=== PATIENT | male | born 1960 | race Caucasian/White ===

== ENCOUNTER → 2020-03-24 14:52 | Outpatient (CLI) | payer OTHER, SELFPAY ==
[2020-03-24 13:34] VITALS: BMI 28.4
[2020-03-24 17:15] LABS: Free T3 3.8 pg/mL (2.18-3.98)
== END ==
PROVIDERS: PCP Internal Medicine; Referring Provider Internal Medicine; Visit Provider Internal Medicine
DX: R00.0 Tachycardia, unspecified (principal)
CPT/HCPCS: 36415; 84439; 84443; 84481

== ENCOUNTER → 2020-05-07 10:32 | Outpatient (CLI) | payer OTHER, SELFPAY ==
[2020-03-24 13:34] VITALS: BMI 28.4
[2020-05-05 14:34] VITALS: BMI 30.9
--- NOTE | 2020-05-07 10:39 | STE_ITS ---
Reason For Study: CHEST PAIN Stress Results Protocol: Jai Protocol Maximum Predicted HR: 159 bpm Target HR: 135 bpm % Maximum Predicted HR: 93 % DurationHeart Rate Stage (mm:ss) (bpm) BP Comment BASELINE 60 136/78 STAGE 1 3:00 101 128/82 STAGE 2 3:00 123 168/72CAN FEEL THE EXTRA BEATS STAGE 3 3:00 139 178/70 STAGE 4 1:00 148 / LEFT FATIGUE RECOVERY 90 140/80 Stress Duration: 10:00 mm:ss Maximum Stress HR: 148 bpm Baseline Echocardiogram Findings Stress Echo Wall motion Data Resting WM Intermediate WM Stress WM Interpretation Summary Exercise stress echo. 60-year-old man with a history of shortness of breath and chest pain status post COVID-20 February 2020. Stress protocol: Resting EKG demonstrates normal sinus rhythm with a rate of 67 bpm normal intervals are noted resting blood pressure is 136/78 mmHg. Patient exercised according to the regular Jai protocol for total duration of 10 minutes. Patient completed 1 minute into stage IV of the Jai protocol. The maximum heart rate was 150 bpm which was 94% of max impacted heart rate the maximum workload was 13.4 metabolic equivalents. The patient maintained sinus rhythm throughout the recording. At rest there were no ST or T wave changes noted to suggest ischemia peak exercise upsloping ST changes were noted with no meet the criteria for ischemia. The peak blood pressure was 190/70 mmHg which was an adequate blood pressure response to exercise. The test was terminated due to leg fatigue. Stress echocardiogram. Resting and stress echocardiographic images were obtained. At rest of the estimated ejection fraction was 55% with no wall motion abnormalities present. At peak exercise there was augmentation of the left ventricular ejection fraction estimated to be 65%. Thickening of all galeano were noted with reduction in left ventricular cavity size. No new wall motion abnormalities were noted to suggest ischemia. Conclusion: Exercise stress echocardiogram with no EKG criteria for ischemia. Normal resting and stress echocardiographic images. Excellent functional aerobic capacity. No clinical angina noted Ordering Physician: Nikki Hernandez Referring Physician: Nikki Hernandez Performed By: Moisés De La Paz MD
--- NOTE | 2020-05-07 11:50 | RAD_ITS ---
STUDY: X-RAY CHEST REASON FOR EXAM: Male, 60 years old. DYSPNEA ON EXERTION. HX OF DOUBLE PNEUMONIA IN FEBRUARY. TECHNIQUE: PA and lateral views of the chest. COMPARISON: None. FINDINGS: The lungs are clear and expanded. There is no demonstrated pleural abnormality. Normal size heart. Normal mediastinum and radha. Normal visualized pulmonary arteries. Normal visualized aortic arch and descending thoracic aorta. Normal visualized thoracic spine. Normal visualized ribs, clavicles, and shoulders. There is no demonstrated abnormality of the visualized soft tissue structures of the upper abdomen. RAD/Chest PA and Lateral IMPRESSION: Normal x-ray examination of the chest. Electronically Signed: Neymar Simms MD at 15:36 EST , Service support ,
== END ==
PROVIDERS: PCP Internal Medicine; Referring Provider Internal Medicine; Visit Provider Internal Medicine
DX: R00.0 Tachycardia, unspecified (principal); R06.00 Dyspnea, unspecified; R07.9 Chest pain, unspecified; Z87.01 Personal history of pneumonia (recurrent)
CPT/HCPCS: 71046; 93017; 93350

== ENCOUNTER → 2021-11-09 | Outpatient (CLI) | payer OTHER, SELFPAY ==
--- NOTE | 2021-11-09 15:01 | CT_ITS ---
STUDY: CT BRAIN WITHOUT CONTRAST REASON FOR EXAM: Male, 61 years old. Right sided facial droop acute RADIATION DOSAGE (If Supplied By Facility): CTDIvol = ( 47.06 ) mGy, DLP = ( 872.68 ) mGycm TECHNIQUE: Transaxial CT imaging of the brain was performed without administration of intravenous contrast material. Individualized dose optimization techniques were used for this CT. COMPARISON: No relevant priors. FINDINGS: Normal soft tissue structures. Normal calvarium. Normal size ventricles and extra-axial spaces for the patient''s age. Normal white matter tracts of the cerebral hemispheres. Normal basal ganglia and thalami. Normal brainstem. Normal cerebellum. There is no intracranial hemorrhage. There are no findings of an acute ischemic infarction. Partial opacification of the left maxillary sinus. Mucosal thickening of the right maxillary sinus. CT/Brain/Head without Contrast IMPRESSION: Normal unenhanced CT scan of the brain. Electronically Signed: Neymar Simms MD at 15:39 EDT ,
== END | disposition home or self-care (01) ==
LOC: CT 15:01
PROVIDERS: PCP Internal Medicine; Referring Provider Nurse Practitioner Family; Visit Provider Nurse Practitioner Family
DX: R29.810 Facial weakness (principal); R53.1 Weakness
CPT/HCPCS: 70450

== ENCOUNTER → 2021-12-23 | Outpatient (CLI) | payer OTHER, SELFPAY ==
[2021-12-23 12:55] LABS: Absolute Lymphocyte Count 1.54 X10^3/uL (0.83-4.51); Absolute Neutrophil Count 7.4 X10^3/uL (2.0-7.7); Basophil# 0.04 X10^3/uL; Basophil% 0.4 % (0-1); Hematocrit 41.7 % (40-54); Hemoglobin 13.5 g/dL (13.0-16.5); Lymphocyte # 1.54 X10^3/ul (0.83-4.51); Lymphocyte % 15.8 % (19-41); Mean Corp Hgb Conc 32.4 g/dL (32-36); Mean Corpuscular Hgb 27.6 pg (27.0-32.0); Mean Corpuscular Volume 85.1 fL (80-94); Mean Platelet Vol. 9.5 fl (6.2-12.0); Monocyte# 0.57 X10^3/uL; Monocyte% 5.8 % (0-10); NRBC Flagged by Analyzer 0 % (0-5); Neutrophil # 7.42 X10^3/uL (2.7-7.7); Neutrophil % 76.2 % (47-70); Platelet Count 287 K/mm3 (150-450); RBC Distribution Width CV 13.9 % (11.6-14.6); RBC Distribution Width SD 42.8 fl (35.1-43.9); White Blood Count 9.8 K/mm3 (4.4-11.0)
[2021-12-23 13:16] LABS: Vitamin D,25 Hydroxy 137.4 ng/mL
[2021-12-23 13:26] LABS: ALB/GLOB Ratio 0.7 RATIO (0.9-2.4); AST(SGOT) 12 U/L (15-37); Alanine Aminotransfer ALT/SGPT 20 U/L (16-61); Albumin, Serum 2.8 g/dL (3.2-5.0); Alkaline Phosphatase 98 U/L (45-117); Anion Gap 5 (5-15); BUN 21 mg/dL (7-18); BUN/Creat Ratio 19.6 RATIO (10-20); Calcium,Total 9.1 mg/dL (8.5-10.1); Chloride 104 mmol/L (98-107); Cholesterol 179 mg/dL (200); Creatinine, Serum 1.07 mg/dL (0.70-1.30); EST Glomerular Filtration Rate 74 mL/min (>60); Est Glom Filt Rate - Afr Amer 90 mL/min (>60); Globulin 4.3 g/dL (2.2-4.2); Glucose 89 mg/dL (74-106); High Density Lipoprotein 27 mg/dL; PSA,Total - Annual Screen 0.26 ng/mL (0.00-4.00); Potassium 3.9 mmol/L (3.5-5.1); Protein, Total 7.1 g/dL (6.4-8.2); Sodium Level 139 mmol/L (136-145); Thyroid Stim Hormone (TSH) 2.31 uIU/mL (0.358-3.74); Triglycerides 117 mg/dL; Very Low Density Lipoprotein 23 mg/dL (5-40)
== END | disposition home or self-care (01) ==
LOC: LAB 11:01
PROVIDERS: PCP Internal Medicine; Referring Provider Internal Medicine; Visit Provider Internal Medicine
DX: Z00.00 Encounter for general adult medical examination without abnormal findings (principal); Z13.220 Encounter for screening for lipoid disorders; Z13.1 Encounter for screening for diabetes mellitus; E55.9 Vitamin D deficiency, unspecified
CPT/HCPCS: 36415; 80053; 80061; 82306; 84153; 84443; 85025; G0103

== ENCOUNTER → 2022-10-28 | Outpatient (CLI) | payer OTHER, SELFPAY ==
[2022-10-28 10:21] LABS: Absolute Neutrophil Count 3.9 X10^3/uL (2.0-7.7); Basophil# 0.03 X10^3/uL; Basophil% 0.5 % (0-1); Eosinophil# 0.08 X10^3/uL; Eosinophils% 1.2 % (0-5); Hematocrit 47.4 % (40-54); Hemoglobin 15.7 g/dL (13.0-16.5); Lymphocyte % 31.9 % (19-41); Mean Corp Hgb Conc 33.1 g/dL (32-36); Mean Corpuscular Hgb 28.5 pg (27.0-32.0); Mean Corpuscular Volume 86.2 fL (80-94); Mean Platelet Vol. 9.6 fl (6.2-12.0); Monocyte# 0.43 X10^3/uL; Monocyte% 6.5 % (0-10); NRBC Flagged by Analyzer 0 % (0-5); Neutrophil # 3.93 X10^3/uL (2.7-7.7); Neutrophil % 59.6 % (47-70); Platelet Count 179 K/mm3 (150-450); RBC Distribution Width CV 13.3 % (11.6-14.6); RBC Distribution Width SD 41.5 fl (35.1-43.9); White Blood Count 6.6 K/mm3 (4.4-11.0)
[2022-10-28 10:47] LABS: Vitamin D,25 Hydroxy 67.6 ng/mL
[2022-10-28 10:59] LABS: ALB/GLOB Ratio 0.9 RATIO (0.9-2.4); AST(SGOT) 13 U/L (15-37); Alanine Aminotransfer ALT/SGPT 23 U/L (16-61); Albumin, Serum 3.5 g/dL (3.2-5.0); Alkaline Phosphatase 71 U/L (45-117); Anion Gap 4 (5-15); BUN 17 mg/dL (7-18); BUN/Creat Ratio 14.4 RATIO (10-20); Chloride 105 mmol/L (98-107); Cholesterol 252 mg/dL (200); Creatinine, Serum 1.18 mg/dL (0.70-1.30); EST Glomerular Filtration Rate 66 mL/min (>60); Est Glom Filt Rate - Afr Amer 80 mL/min (>60); Free T3 2.7 pg/mL (2.18-3.98); Globulin 3.8 g/dL (2.2-4.2); Glucose 98 mg/dL (74-106); High Density Lipoprotein 42 mg/dL; Potassium 4.2 mmol/L (3.5-5.1); Protein, Total 7.3 g/dL (6.4-8.2); Sodium Level 140 mmol/L (136-145); T4 Free Direct 0.95 ng/dL (0.76-1.46); Thyroid Stim Hormone (TSH) 2.67 uIU/mL (0.358-3.74); Triglycerides 202 mg/dL; Very Low Density Lipoprotein 40 mg/dL (5-40)
== END | disposition home or self-care (01) ==
LOC: LAB 09:24
PROVIDERS: PCP Internal Medicine; Referring Provider Internal Medicine; Visit Provider Internal Medicine
DX: Z00.00 Encounter for general adult medical examination without abnormal findings (principal); Z13.220 Encounter for screening for lipoid disorders; E55.9 Vitamin D deficiency, unspecified; R53.83 Other fatigue
CPT/HCPCS: 36415; 80053; 80061; 82306; 84402; 84403; 84439; 84443; 84481; 85025

== ENCOUNTER → 2023-10-30 | Outpatient (CLI) | payer OTHER, SELFPAY ==
[2023-10-30 07:07] LABS: Absolute Lymphocyte Count 1.98 X10^3/uL (0.83-4.51); Absolute Neutrophil Count 3.9 X10^3/uL (2.0-7.7); Basophil# 0.04 X10^3/uL; Basophil% 0.6 % (0-1); Eosinophil# 0.13 X10^3/uL; Hematocrit 48.7 % (40-54); Hemoglobin 16.4 g/dL (13.0-16.5); Lymphocyte # 1.98 X10^3/ul (0.83-4.51); Lymphocyte % 30.2 % (19-41); Mean Corp Hgb Conc 33.7 g/dL (32-36); Mean Corpuscular Hgb 28.3 pg (27.0-32.0); Mean Corpuscular Volume 84.1 fL (80-94); Mean Platelet Vol. 9.1 fl (6.2-12.0); Monocyte# 0.51 X10^3/uL; Monocyte% 7.8 % (0-10); NRBC Flagged by Analyzer 0 % (0-5); Neutrophil # 3.85 X10^3/uL (2.7-7.7); Neutrophil % 58.8 % (47-70); Platelet Count 209 K/mm3 (150-450); RBC Distribution Width CV 13.9 % (11.6-14.6); RBC Distribution Width SD 42.1 fl (35.1-43.9); Red Blood Count 5.79 M/mm3 (4.6-6.2); White Blood Count 6.6 K/mm3 (4.4-11.0)
[2023-10-30 07:33] LABS: Vitamin D,25 Hydroxy 77.7 ng/mL
[2023-10-30 07:41] LABS: ALB/GLOB Ratio 0.9 RATIO (0.9-2.4); AST(SGOT) 20 U/L (15-37); Alanine Aminotransfer ALT/SGPT 23 U/L (16-61); Albumin, Serum 3.2 g/dL (3.2-5.0); Alkaline Phosphatase 62 U/L (45-117); Anion Gap 2 (5-15); BUN 18 mg/dL (7-18); BUN/Creat Ratio 14.6 RATIO (10-20); Calcium,Total 8.4 mg/dL (8.5-10.1); Chloride 108 mmol/L (98-107); Cholesterol 226 mg/dL (200); Creatinine, Serum 1.23 mg/dL (0.70-1.30); EST Glomerular Filtration Rate 63 mL/min (>60); Est Glom Filt Rate - Afr Amer 76 mL/min (>60); Globulin 3.5 g/dL (2.2-4.2); Glucose 105 mg/dL (74-106); High Density Lipoprotein 34 mg/dL; PSA,Total - Annual Screen 0.42 ng/mL (0.00-4.00); Potassium 3.9 mmol/L (3.5-5.1); Protein, Total 6.7 g/dL (6.4-8.2); Sodium Level 139 mmol/L (136-145); Thyroid Stim Hormone (TSH) 4.87 uIU/mL (0.358-3.74); Triglycerides 266 mg/dL; Very Low Density Lipoprotein 53 mg/dL (5-40)
[2023-10-30 08:31] LABS: Free T3 2.6 pg/mL (2.18-3.98); T4 Free Direct 0.89 ng/dL (0.76-1.46)
== END | disposition home or self-care (01) ==
LOC: LAB 06:05
PROVIDERS: PCP Internal Medicine; Referring Provider Internal Medicine; Visit Provider Internal Medicine
DX: Z00.00 Encounter for general adult medical examination without abnormal findings (principal); Z13.1 Encounter for screening for diabetes mellitus; Z13.220 Encounter for screening for lipoid disorders; Z12.5 Encounter for screening for malignant neoplasm of prostate; R94.6 Abnormal results of thyroid function studies; E55.9 Vitamin D deficiency, unspecified
CPT/HCPCS: 36415; 80053; 80061; 82306; 84153; 84439; 84443; 84481; 85025; G0103

== ENCOUNTER 2023-11-24 07:50 | Day surgery (SDC) | payer OTHER, SELFPAY ==
[2023-11-24] VITALS (8 sets, daily range): BP systolic 115–144; BP diastolic 73–86; PULSE 58–65; RESP 16–18; TEMP 36.6–37.2; O2SAT 94–98; BMI 32.1
[2023-11-24] MEDS: Lactated Ringers 1,000 ML 15 ML IV (08:13)
--- NOTE | 2023-11-24 08:35 | PCM.PRE.AN2 ---
ASA Classification* ASA Classification ASA Classification: 2 Assessment & Plan Anesthesia* Anesthesia Assessment Anesthesia Assessment: Discussed sedation and/or anesthesia options, risks, benefits, and alternatives with patient/parents/legal guardian/POA. Questions invited. The patient/parents/legal guardian/POA seems to understand and agrees to proceed with anesthesia plan. Reviewed the physical assessment, medical history, allergy history and patient home medications list prior to surgery/procedure/anesthetic and documented any changes. Performed airway and anesthesia risk assessments. Anesthesia Type Anesthesia Type: MAC History Source History Obtained from:: Patient and Chart Anesthesia Focused Assessment* Temperature: 98.7 F Pulse Rate: 65 Blood Pressure: 144/75 Respiratory Rate: 18 Pulse Ox: 96 Oxygen Delivery Method: Room Air Airway Assessment Mouth opens: >3 cm Mallampati Score: I Teeth Condition: Partial (Left upper partial.) Neck Range of motion (ROM): Limited ROM (Decreased extension) Pertinent Findings Stress Test Pertinent Findings:: May 07, 2020. Ejection fraction 65%. Stress is negative. Focused Labs Anesthesia Preop lab: CBC WBC 6.6 K/mm3 (4.4-11.0) 10/30/23 06:07 RBC 5.79 M/mm3 (4.6-6.2) 10/30/23 06:07 Hgb 16.4 g/dL (13.0-16.5) 10/30/23 06:07 Hct 48.7 % (40-54) 10/30/23 06:07 Plt Count 209 K/mm3 (150-450) 10/30/23 06:07 CHEMISTRY Potassium 3.9 mmol/L (3.5-5.1) 10/30/23 06:07 Sodium 139 mmol/L (136-145) 10/30/23 06:07 BUN 18 mg/dL (7-18) 10/30/23 06:07 Creatinine 1.23 mg/dL (0.70-1.30) 10/30/23 06:07 Glucose 105 mg/dL (74-106) 10/30/23 06:07 TSH 4.87 uIU/mL (0.358-3.74) H 10/30/23 06:07 COAG Pre-Assessment Diagnosis/Proposed Procedure Planned Operative Procedure(s): COLONOSCOPY-OA Anesthesia History Anesthesia History - health services administrator: Anesthesia History - health services administrator Hx Hospitalization No 11/22/23 13:23 Any Problems With Anesthesia No 11/22/23 13:23 Cholinesterase deficiency No 11/22/23 13:23 You/Your Family Experience No 11/22/23 13:23 fever (hyperthermia) with Relationship Recent Exposure to Contagious No 11/24/23 08:17 Disease Does patient have nerve No 11/22/23 13:23 stimulator Patient instructed to have device shut off --Does patient have Pacemaker or ICD? When Was Last Pacemaker Check QUESTION #4 FULL TEXT: You/Your Family Experience fever (hyperthermia) with Anesthesia Last Oral Intake Last Oral intake: Last Oral Intake NPO since 00:00 11/24/23 08:17 Meds taken in AM with sips of No 11/24/23 08:17 water? Meds patient instructed to take am of surgery Any additional information?: Yes NPO since: 04:30 Meds patient instructed to take am of surgery: Patient finished prep at 430. PONV PONV - health services administrator: PONV - health services administrator Female No 11/22/23 13:23 HX of Motion Sickness No 11/22/23 13:23 HX of N/V After Surgery No 11/22/23 13:23 Non-Smoker Yes 11/22/23 13:23 Duration of Surgery greater No 11/22/23 13:23 than 60 minutes Number of Risk Factors 1 11/22/23 13:23 PONV Score Low Risk 11/22/23 13:23 Height & Weight Height & Weight: Anesthesia: Height & Weight Height 5 ft 8 in 11/24/23 08:17 Weight: 95.708 kg 11/24/23 08:17 Body Mass Index (BMI) 32.1 11/24/23 08:17 Respiratory Assessment Respiratory Assessment - health services administrator: Respiratory Tract Infection Hx - health services administrator Hx Respiratory Tract Infection No 11/22/23 13:23 STOP Sleep Apnea STOP Sleep Apnea - health services administrator: STOP Sleep Apnea - health services administrator Hx Hypertension No 11/22/23 13:23 Hx Sleep Apnea No 11/22/23 13:23 CPAP BIPAP Do you snore loudly (louder No 11/22/23 13:23 than talking or can be heard Do you often feel tired/ No 11/22/23 13:23 fatigued/ sleepy during daytime? Has anyone observed you stop No 11/22/23 13:23 breathing during sleep? STOP Results Negative 11/22/23 13:23 QUESTION #5 FULL TEXT : Do you snore loudly (louder than talking or can be heard through closed doors)? 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 Specify any problems Hx of Preganancy in last 3 N/A 11/22/23 13:23 Months Nurse Filling Out Transfusion VCHRISTIN 11/22/23 13:23 & Questions: Date: 11/22/23 11/22/23 13:23 Time: 13:24 11/22/23 13:23 Patient unable to answer at this time (ie. confused, unrespo /Reproduction History /Reproductive History - health services administrator: /Reproductive Hx- health services administrator Hx Now Gestational Age (in weeks): EDC: Hx Hx Para Hx Section SAB Active Medications Active Medications: Current Medications Generic Name Dose Route Start Last Admin Trade Name Freq PRN Reason Stop Dose Admin Lactated Ringer's 1,000 mls @ 15 mls/hr 11/24/23 08:00 11/24/23 08:13 IV 15 mls/hr .Q48H YARELY Administration PFSH Medical History (Updated 11/24/23 @ 08:[address] Obi Yi MD) Wears dentures Kidney stones Syncope Gastric reflux Non-smoker Chronic cough History of edema Normal stress echocardiogram History of irregular heartbeat Elevated TSH [place]'s palsy Weakness Facial droop History of COVID-19 Arthritis History of kidney stones Bilateral pneumonia Home Medications ?Medication ?Instructions ?Recorded ?Last Taken ?Type multivitamin 1 tab PO DAILY 11/09/21 11/22/23 History soybean, fermented 50 mg capsule 200 mg PO .QD 11/01/23 11/22/23 History (Nattokinase) ferrous sulfate 325 mg (65 mg 325 mg PO DAILY 11/03/23 11/22/23 History iron) tablet Allergy/AdvReac Type Severity Reaction Status Date / Time No Known Allergies Allergy Verified 11/24/23 08:21 Family History Mother Heart disease Diabetes Father Heart disease Sister Cancer melanoma Surgical History (Updated 11/01/23 @ 09:32 by Bhumika Alaniz) Hx of colonoscopy History of hernia repair Social History (Updated 11/01/23 @ 09:33 by Bhumika Alaniz) 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
--- NOTE | 2023-11-24 08:52 | HP.PCM_ITS ---
HPI - General HPI Narrative BIMAL PAULA, is a 63 M who presents for screening colonoscopy. His last colonoscopy was 11 years ago and was normal. He denies abdominal pain. He has occasional blood in the stool but he believes this is from hemorrhoids. He has no family history of colon cancer. [facility] Medical History (Updated 11/24/23 @ 08:[address] Obi Yi MD) Wears dentures Kidney stones Syncope Gastric reflux Non-smoker Chronic cough History of edema Normal stress echocardiogram History of irregular heartbeat Elevated TSH Birmingham's palsy Weakness Facial droop History of COVID-19 Arthritis History of kidney stones Bilateral pneumonia Home Medications ?Medication ?Instructions ?Recorded ?Last Taken ?Type multivitamin 1 tab PO DAILY 11/09/21 11/22/23 History soybean, fermented 50 mg capsule 200 mg PO .QD 11/01/23 11/22/23 History (Nattokinase) ferrous sulfate 325 mg (65 mg 325 mg PO DAILY 11/03/23 11/22/23 History iron) tablet Allergy/AdvReac Type Severity Reaction Status Date / Time No Known Allergies Allergy Verified 11/24/23 08:21 Family History Mother Heart disease Diabetes Father Heart disease Sister Cancer melanoma Surgical History (Updated 11/01/23 @ 09:32 by Bhumika Alaniz) Hx of colonoscopy History of hernia repair Social History (Updated 11/01/23 @ 09:33 by Bhumika Alaniz) current occupational status: employed 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 Smoking Status: Never smoker alcohol intake: never substance use type: does not use what type of physical activity do you participate in: walking frequency: daily Past Medical/Surgical History Planned Operation Planned Operative Procedure(s): COLONOSCOPY-OA Previous Hospitalizations/Surgeries HX Hospitalizations: No Any Problems With Anesthesia: No You/Your Family Experience Fever (Hyperthermia) With Anes: No Cholinesterase deficiency: No Cardiovascular Hx Hypertension: No Respiratory Hx Sleep Apnea: No Hx Respiratory Tract Infection/Cold (presently): No Do You Snore Loudly (louder than talking or can be heard): No Do You Often Feel Tired/ Fatigued/ Sleepy Dring Daytime?: No Has Anyone Observed You Stop Breathing During Sleep?: No Result (for STOP score): Negative Smoking Status: Never smoker Neurological Does patient have nerve stimulator: No Miscellaneous Recent Exposure to Contagious Disease: No Allergies No Known Allergies Allergy (Verified 11/24/23 08:21) Discharge Is Pt Admitted From a Skilled Nursing, or a Nursing Home: No After D/C, Where Do you Plan to Go: Return Home Vital Signs Vital Signs Vital Signs: 11/24/23 08:17 11/24/23 08:17 11/24/23 08:44 Temperature 98.7 F 98.7 F Temperature Source Temporal Pulse Rate 65 65 Respiratory Rate 18 18 Respiratory Pattern Normal Blood Pressure 144/75 H 144/75 H Blood Pressure Mean 98 Blood Pressure Source Monitor Blood Pressure Position Semi-Fowlers Blood Pressure Location Right Arm Pulse Ox 96 96 Oxygen Delivery Method Room Air Room Air Weight Weight: 211 lb Body Mass Index (BMI) 32.1 Physical Exam Const alert and oriented x3 HEENT normocephalic Eyes PERRL Resp normal respiratory effort and normal air movement Cardio regular rate and regular rhythm GI soft to palpation, non-tender and non-distended Extremity normal to inspection Assessment & Plan Assessment/Plan (1) Encounter for screening for malignant neoplasm of colon: PLAN: I explained endoscopy in detail to the patient. I explained the risks including but not limited to stroke or heart attack with anesthesia, perforation of the GI tract, bleeding, infection. I explained that any of these could necessitate further emergency surgery. The patient understands and all questions were answered sufficiently. The patient wishes to proceed with procedure. Caleb Mcmahan MD Pager: [facility] [address] [place] [address], [address] [place] [address] Office: Surgery Risks - Colonoscopy Risks Include but are not Limited To: Risks include but are not limited to: Bleeding, perforation requiring further surgery, inability to complete colonoscopy requiring barium enema.
--- NOTE | 2023-11-24 09:19 | OP.CCLET_ITS ---
11/24/2023 Nikki Hernandez [facility] [address] [place] [address] Re : Colonoscopy procedure for Deepak Fregoso Dear Dr. Hernandez This procedure was performed on Friday, November 24, 2023. My impressions and recommendations are as follows: Impressions : - The entire examined colon is normal on direct and retroflexion views. - No specimens collected. Recommendations : - Discharge patient to home. - Resume previous diet. - Continue present medications. - Repeat colonoscopy in 10 years for screening purposes. My findings are described in the full procedure note, which is enclosed. If I can be of further assistance, please feel free to contact me at Doctor phone number(s): , Work: . Sincerely, Caleb Mcmahan MD 11/24/2023 9:19:28 AM This report has been signed electronically.
--- NOTE | 2023-11-24 09:19 | OP.COLON_ITS ---
Patient Name: Deepak Fregoso Procedure Date: 11/24/2023 8:57 AM Date of : 1960 Age: 63 Procedure: Colonoscopy Indications: Screening for colorectal malignant neoplasm Providers: Caleb Mcmahan MD Medicines: Propofol per Anesthesia Patient Profile: This is a 63 year old male. Refer to note in patient chart for documentation of history and physical. Last Colonoscopy: more than 10 years ago. Complications: No immediate complications. Procedure: Pre-Anesthesia Assessment: - Prior to the procedure, a History and Physical was performed, and patient medications and allergies were reviewed. The patient's tolerance of previous anesthesia was also reviewed. The risks and benefits of the procedure and the sedation options and risks were discussed with the patient. All questions were answered, and informed consent was obtained. Prior Anticoagulants: The patient has taken no anticoagulant or antiplatelet agents. After reviewing the risks and benefits, the patient was deemed in satisfactory condition to undergo the procedure. After I obtained informed consent, the scope was passed under direct vision. Throughout the procedure, the patient's blood pressure, pulse, and oxygen saturations were monitored continuously. The Colonoscope was introduced through the anus and advanced to the cecum, identified by appendiceal orifice and ileocecal valve. The colonoscopy was performed without difficulty. The patient tolerated the procedure well. The quality of the bowel preparation was good. The ileocecal valve, appendiceal orifice, and rectum were photographed. Scope In: 9:06:03 AM Scope Withdrawal Time 0 hours 4 minutes 30 seconds Scope Out: 9:13:57 AM Total Procedure Duration Time 0 hours 7 minutes 54 seconds Findings: The entire examined colon appeared normal on direct and retroflexion views. Impression: - The entire examined colon is normal on direct and retroflexion views. - No specimens collected. Recommendation: - Discharge patient to home. - Resume previous diet. - Continue present medications. - Repeat colonoscopy in 10 years for screening purposes. Procedure Code(s): --- Professional --- 36555, Colonoscopy, flexible; diagnostic, including collection of specimen(s) by brushing or washing, when performed (separate procedure) Diagnosis Code(s): --- Professional --- Z12.11, Encounter for screening for malignant neoplasm of colon CPT copyright 2021 [employer] [place] [employer]. All rights reserved. The codes documented in this report are preliminary and upon quarter seamer review may be revised to meet current compliance requirements. Caleb Mcmahan MD 11/24/2023 9:19:28 AM This report has been signed electronically. Number of Addenda: 0 Note Initiated On: 11/24/2023 8:57 AM
--- NOTE | 2023-11-24 09:29 | PCM.POST.ANE ---
Anesthesia: Postop Eval I Current Vital Signs Temperature: 97.9 F Pulse Rate: 61 Blood Pressure: 127/79 Respiratory Rate: 16 Pulse Ox: 98 Oxygen Delivery Method: Nasal Cannula Oxygen Flow Rate (L/min): 4 Assessment Airway patent: Yes Spontaneous unlabored respirations: Yes Mental status: Awake and Calm nausea: No Vomiting: No Anesthesia Complication: Yes Anesthesia Complication Comment:: profuse coughing and some emesis, subsequent drop in O2 sat, suctioned and bag/mask AV until returned WNL Fluid Hydration Crystalloid volume administer (ml): 600 Total IV fluid infused: 600 Progress Note Anesthesia document: Postop Eval 1 completed: Yes
--- NOTE | 2023-11-24 12:50 | PCM.POSTANE2 ---
Anesthesia Postop Eval I Sum Postop Eval Completion status Anesthesia document: Postop Eval 1 completed: Yes Anesthesia Postop Eval I Summary Anesthesia Postop Eval I Summary: Anesthesia Postop Eval I: Assessment Summary Airway patent Yes 11/24/23 09:31 [email or web address] Spontaneous unlabored Yes 11/24/23 09:31 [email or web address] respirations Mental status Awake,Calm 11/24/23 09:31 [email or web address] nausea No 11/24/23 09:31 [email or web address] Vomiting No 11/24/23 09:31 [email or web address] Anesthesia Postop Eval I: Fluid Summary Crystalloid volume administer 600 11/24/23 09:31 [email or web address] (ml) Colloids volume administered ( ml) Blood Product volume administered (ml) Total IV fluid infused 600 11/24/23 09:31 [email or web address] Anesthesia Postop Eval I: Summary Notes Anesthesia Complication Yes 11/24/23 09:31 [email or web address] Anesthesia Complication profuse coughing 11/24/23 09:31 [email or web address] Comment: and some emesis, subsequent drop in O2 sat, suctioned and bag/mask AV until returned WNL Post-operative progress note Anesthesia: Postop Eval II Evaluation Mental status: Awake Pain Level: 0 nausea: No Vomiting: No
== END 2023-11-24 10:10 | disposition home or self-care (01) ==
LOC: EN 07:50 → AC 07:51
PROVIDERS: PCP Internal Medicine; Referring Provider Internal Medicine; Visit Provider Surgery
PROC: 0DJD8ZZ Inspection of Lower Intestinal Tract, Via Natural or Artificial Opening Endoscopic (ICD-10-PCS; CPT 45378; principal; 2023-11-24 08:55)
DX: Z12.11 Encounter for screening for malignant neoplasm of colon (principal); Z87.19 Personal history of other diseases of the digestive system; Z86.16 Personal history of COVID-19
CPT/HCPCS: 45378; J7120; J2405

== ENCOUNTER → 2024-02-16 | Outpatient (CLI) | payer OTHER, SELFPAY ==
--- NOTE | 2024-02-16 07:04 | ECHOD_ITS ---
Reason For Study: Dyspnea/SOB Procedure This was a 2D Doppler, Color Flow transthoracic echocardiogram. Exam performed in department. Left Ventricle Normal LV size. The estimated ejection fraction is 65 %. No evidence for diastolic dysfunction. No regional wall motion abnormalities noted. Right Ventricle Normal RV size. Normal systolic function. Atria The left and right atria are normal. No doppler evidence for ASD. Mitral Valve There is no mitral valve stenosis. Mild (1+) mitral valve insufficiency. Tricuspid Valve There is no tricuspid stenosis. Trivial tricuspid valve insufficiency. Pulmonary artery systolic pressure is 35-40 mmHg. Aortic Valve Trisinus/trileaflet aortic valve. There is no aortic stenosis. Mild (1+) aortic valve insufficiency. Pulmonic Valve There is no pulmonic valvular stenosis. No pulmonic valve insufficiency. Great Vessels Normal aortic root. Pericardium/Pleural No pericardial effusion. MMode/2D Measurements & Calculations LVIDd: 3.8 cm IVSd: 0.99 cm asc Aorta Diam: 3.7 cm LVIDs: 2.4 cm LVPWd: 0.95 cm RVDd: 4.1 cm FS: 38.3 % LAV(MOD-bp): 35.7 ml LVAd ap4: 27.2 cm2 SV(MOD-sp4): 40.6 ml LAV(MOD-bp) Indexed: 17.3 ml/m2 LVLd ap4: 9.3 cm SI(MOD-sp4): 19.7 ml/m2 LAV(MOD-sp2): 33.6 ml EDV(MOD-sp4): 65.4 ml LAV(MOD-sp4): 37.3 ml EDV(sp4-el): 67.5 ml LVAs ap4: 13.9 cm2 LVLs ap4: 7.2 cm ESV(MOD-sp4): 24.8 ml ESV(sp4-el): 22.7 ml EF(MOD-sp4): 62.1 % EF(sp4-el): 66.4 % SV(sp4-el): 44.9 ml LA A4 area: 15.3 cm2 LA dimension(2D): 4.5 cm RA A4 area: 8.7 cm2 TAPSE: 2.6 cm Time Measurements MV dec time: 0.23 sec Doppler Measurements & Calculations MV E max brooks: 50.8 cm/sec Lat Peak E' Brooks: 11.5 cm/sec Med Peak E' Brooks: 5.3 cm/sec MV A max brooks: 65.0 cm/sec E/E' lat: 4.4 E/E' med: 9.6 MV E/A: 0.78 Ao V2 max: 139.2 cm/sec AI max brooks: 320.5 cm/sec MV dec slope: 220.4 cm/sec2 Ao max P.8 mmHg AI max P.1 mmHg Ao V2 mean: 102.7 cm/sec Ao mean P.5 mmHg AI dec slope: 183.3 cm/sec2 Ao V2 VTI: 28.2 cm AI P1/2t: 511.9 msec AV (velocity ratio): 0.83 LV V1 max: 110.7 cm/sec PA V2 max: 127.7 cm/sec TR max brooks: 288.8 cm/sec LV V1 max P.9 mmHg PA V2 mean: 95.6 cm/sec TR max P.4 mmHg LV V1 mean P.7 mmHg LV V1 mean: 79.7 cm/sec LV V1 VTI: 23.4 cm ECHO/Echo Complete Interpretation Summary The estimated ejection fraction is 65 %. No evidence for diastolic dysfunction. Mild (1+) mitral valve insufficiency. There is no aortic stenosis. Mild (1+) aortic valve insufficiency. Ordering Physician: Nikki Hernandez Referring Physician: Nikki Hernandez Performed By: Ifeoma Morrison RDCS, RVT
--- NOTE | 2024-02-16 07:20 | RAD_ITS ---
HISTORY: Cough dyspnea on exertion. TECHNIQUE: XR Chest 2 Views. COMPARISON: 05/07/2020. FINDINGS: CARDIOMEDIASTINAL BORDERS: Cardiac silhouette within normal limits in size. Mediastinal contour unremarkable. LUNGS: 2.6 cm focal opacity in the lower lobe on the lateral view, likely within the left lower lobe. PLEURA: No pleural effusion or pneumothorax seen. OSSEOUS STRUCTURES: Unremarkable. RAD/Chest PA and Lateral IMPRESSION: Focal left lower lobe opacity, possible pneumonia. Recommend close short-term interval follow-up or CT to exclude pulmonary nodule/mass. Electronically Signed: Meghan Richardson MD at 15:13 EST ,
--- NOTE | 2024-02-19 11:50 | STRESSREP ---
Stress Test Report Date: 02/16/2024 Procedure: Exercise tolerance test/imaging study Indications: Palpitations, dyspnea Consent: Per the patient Procedure: The patient exercised on a Jai protocol for 12 minutes achieving a peak heart rate of 146 bpm (93% predicted maximal heart rate) with a peak blood pressure 180/72 mmHg and a peak MET capacity of 13.7 METs. The baseline ECG demonstrated normal sinus rhythm. The peak exercise ECG demonstrated sinus tachycardia with about half to [address] depression in lead III alone. EKG during recovery revealed return of ST segments to baseline Patient had frequent PVCs with exertion, sometimes in a bigeminal pattern. Patient was able to notice when he had the PVCs. The functional capacity was considered excellent for age. There was [no complaint of chest discomfort during exercise or recovery]. The examination was discontinued secondary to achieving target heart rate. Impression: 1. Technically adequate (percent predicted maximal heart rate greater than 85%) exercise tolerance test 2. Stress test is negative for significant exercise-induced EKG changes of ischemia. Please see above for details 3. The test test is negative for exercise-induced chest pain 4. Functional capacity is excellent for age 5. Nuclear images pending Myocardial perfusion imaging study: Technique: The patient was injected with 12 mCi of technetium 99m Cardiolite and subsequently rest SPECT Cardiolite nuclear imaging was obtained in the horizontal long, vertical long, and short axis views. The patient exercised on a Jai protocol. Please see above for details. The patient was injected with 36 mCi of technetium 99m Cardiolite and subsequently stress SPECT Cardiolite nuclear imaging was obtained in the horizontal long, vertical long, and short axis views. A gated Cardiolite study at peak stress was obtained. Interpretation: Rest and stress SPECT Cardiolite nuclear imaging status post realignment, normalization, and attenuation correction, demonstrates no evidence of significant ischemia or infarction. The gated Cardiolite study demonstrates no significant regional wall motion abnormalities. The reported LVEF is 67%. Impression: 1. There is no evidence of significant ischemia or infarction. 2. The gated Cardiolite study reports an LVEF of 67%. This note was generated with [employer] software. It may contain incorrect words, spelling, and punctuation that were not noted in checking the note before signing.
== END | disposition home or self-care (01) ==
PROVIDERS: PCP Internal Medicine; Referring Provider Internal Medicine; Visit Provider Internal Medicine
DX: R05.9 Cough, unspecified (principal); R06.09 Other forms of dyspnea
CPT/HCPCS: 71046; 78452; 93017; 93306; A9500; A4216

== ENCOUNTER → 2024-03-19 | Outpatient (CLI) | payer OTHER, SELFPAY ==
--- NOTE | 2024-03-19 15:09 | CT_ITS ---
INDICATION: Possible nodule (seen xray 02/16/24) EXAMINATION: CT CHEST WITHOUT CONTRAST - CT Chest W/O Contrast Injection TECHNIQUE: Helically acquired images were obtained of the chest. A radiation dose optimization technique was used for this scan. IV Contrast dosage and agent: None. COMPARISON: Chest x-ray 02/16/2024 FINDINGS: LUNGS, PLEURA AND LARGE AIRWAYS: No masses, consolidation, or edema. No pleural effusion or thickening. No pneumothorax. THYROID: No thyroid lesions. HEART AND PERICARDIUM: Heart size is normal. No pericardial effusion. CORONARY ARTERIES: Coronary artery calcification is seen. VESSELS: Thoracic aorta is not dilated. MEDIASTINUM AND JONNA: No mediastinal or hilar adenopathy. Esophagus is unremarkable. Small hiatal hernia. UPPER ABDOMEN: No acute pathology. BONES: No suspicious lytic or blastic abnormality. CT/Chest without Contrast IMPRESSION: Negative CT chest without contrast. Electronically Signed: Gilberto Pagan MD at 12:34 EST ,
== END | disposition home or self-care (01) ==
PROVIDERS: PCP Internal Medicine; Referring Provider Internal Medicine; Visit Provider Internal Medicine
DX: R06.09 Other forms of dyspnea (principal); R05.9 Cough, unspecified; R91.1 Solitary pulmonary nodule
CPT/HCPCS: 71250

== ENCOUNTER → 2024-09-17 | Outpatient (CLI) | payer SELFPAY ==
[2024-09-17 12:34] LABS: Free T3 2.8 pg/mL (2.18-3.98)
== END | disposition home or self-care (01) ==
PROVIDERS: PCP Internal Medicine; Referring Provider Internal Medicine; Visit Provider Internal Medicine
DX: R79.89 Other specified abnormal findings of blood chemistry (principal)
CPT/HCPCS: 36415; 84439; 84443; 84481

== ENCOUNTER → 2024-12-04 | Outpatient (CLI) | payer SELFPAY ==
[2024-12-04 10:18] LABS: Hematocrit 42.6 % (40-54); Hemoglobin 14.7 g/dL (13.0-16.5); Immature Granulocytes Count 0.020 X10^3/uL (0.0-0.0); Mean Corp Hgb Conc 34.5 g/dL (32-36); Mean Corpuscular Volume 85.5 fL (80-94); Mean Platelet Vol. 9.2 fl (6.2-12.0); NRBC Flagged by Analyzer 0 % (0-5); Platelet Count 181 K/mm3 (150-450); RBC Distribution Width CV 13.2 % (11.6-14.6); RBC Distribution Width SD 40.6 fl (35.1-43.9); Red Blood Count 4.98 M/mm3 (4.6-6.2); White Blood Count 5.9 K/mm3 (4.4-11.0)
[2024-12-04 10:51] LABS: AST(SGOT) 18 U/L (<=37); Alanine Aminotransfer ALT/SGPT 17 U/L (<=46); Albumin, Serum 4.3 g/dL (3.4-4.8); Alkaline Phosphatase 61 U/L (40-129); Anion Gap 10 (5-15); BUN 20 mg/dL (4-19); BUN/Creat Ratio 17.7 RATIO (10-20); Calcium,Total 9.5 mg/dL (7.6-11.0); Carbon Dioxide 26.8 mmol/L (21.0-32.0); Chloride 103 mmol/L (98-108); Cholesterol 280 mg/dL (<=200); Globulin 2.5 g/dL (2.2-4.2); Glucose 96 mg/dL (70-99); Low Density Lipoprotein Calc. 195 mg/dL; PSA,Total - Annual Screen 0.58 ng/mL (0.02-4.00); Potassium 4.0 mmol/L (3.3-5.1); Triglycerides 191 mg/dL; Very Low Density Lipoprotein 38 mg/dL (5-40); cholesterol:hdl ratio screen 6.00
== END | disposition home or self-care (01) ==
LOC: LAB 09:07
PROVIDERS: PCP Internal Medicine; Referring Provider Internal Medicine; Visit Provider Internal Medicine
DX: R06.09 Other forms of dyspnea (principal); R74.8 Abnormal levels of other serum enzymes; R73.9 Hyperglycemia, unspecified; Z12.5 Encounter for screening for malignant neoplasm of prostate
CPT/HCPCS: 36415; 80053; 80061; 83036; 84153; 85025; G0103